=== PATIENT | female | born 1930 | race Caucasian/White ===

== ENCOUNTER 2018-12-27 18:03 | Emergency (ER) | payer MEDICARE, OTHER ==
[~2018-12-27] VITALS: Ht 165.1 cm; Wt 63.5 kg
[~2018-12-27 18:03] MED LIST: DULCOLAX5 MG PO
== END 2018-12-27 20:34 | disposition home or self-care (01) ==
LOC: ED 18:03
DX: M47.816 Spondylosis without myelopathy or radiculopathy, lumbar region (principal); M41.9 Scoliosis, unspecified; M53.3 Sacrococcygeal disorders, not elsewhere classified; Z87.891 Personal history of nicotine dependence
CPT/HCPCS: 72100; 72170; 99283

== ENCOUNTER 2018-12-29 07:47 | Observation (INO) | payer MEDICARE, OTHER ==
[~2018-12-29] VITALS: Ht 165.1 cm; Wt 65.2 kg
--- OUTSIDE RECORDS SUMMARY | 2018-12-29 07:48 | XMS ---
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 E.Robin VISIT COUNT (12 MO.) 2 [facility] TOTAL 2 NOTE: Visits indicate total known visits. ED/UCC VISIT TRACKING (12 MO.) 12/29/2018 07:47 [facility] [place] TYPE: Emergency COMPLAINT: - RT HIP PAIN 12/27/2018 18:03 [facility] [place] TYPE: Emergency COMPLAINT: - HIP PAIN, NON INJ INPATIENT VISIT TRACKING (12 MO.) No inpatient visits to display in this time frame [id number]
[2018-12-29] MEDS ORDERED: CELECOXIB200 MG PO (08:07)
[2018-12-29] MEDS ORDERED: ULTRAM50 MG PO (11:44)
--- NOTE | 2018-12-29 13:58 | EKG ---
[facility] [address] [facility] [place], [place] [address] Signed Normal sinus rhythm Left axis deviation Left bundle branch block Abnormal ECG No previous ECGs available Confirmed by HUNG CALABRSEE DO ([id number]) on 12/29/2018 1:58:06 PM Electronically Signed By: HUNG CALABRESE DO 12/29/18 1358 PATIENT NAME: ZACKARY NUNN Electrocardiogram DATE OF : [birth year] PHYSICIAN: HUNG CALABRESE DO REPORT #: [id number] REPORT IS CONFIDENTIAL AND NOT TO BE RELEASED WITHOUT AUTHORIZATION
[2018-12-29] MEDS ORDERED: LEVOTHYROXINE75 MCG PO (16:02)
[2018-12-29] MEDS ORDERED: MEDROL4 M1 PO (16:03)
[2018-12-29] MEDS ORDERED: PRESERVISION A1 EAC1 PO (16:04)
[2018-12-29] MEDS ORDERED: MOTRIN PM CAPL1 EACH PO (16:06)
--- NOTE | 2018-12-29 17:02 | NUR ---
PT RECEIVED FROM ED. PT WITH PAIN TO RIGHT HIP WITH MOVEMENT. PT ON ROOM AIR, LUNG SOUNDS CLEAR, DENIES SOB. BOWEL TONES ACTIVE, DENIES NAUSEA. CMS INTACT, WITHOUT EDEMA. IV TO LEFT FOREARM, SALINE LOCKED. PT ASSISTED TO BATHROOM, 1PA WITH FWW, ABLE TO BEAR SOME WEIGHT IN RIGHT LEG, RATING PAIN 2-3 WITH MOVEMENT. ADMISSION INTAKE COMPLETED.
--- NOTE | 2018-12-29 17:18 | NUR ---
Pt resting quietly in bed with no needs/concerns. Pt states that she is in no pain at this time. Pt dinner order of BLT with joni on whole wheat and glass of milk was given to kitchen. Call light within reach.
--- NOTE | 2018-12-29 17:39 | NUR ---
MD visiting with pt in room. Call light within reach. No needs/concerns at this time.
--- NOTE | 2018-12-29 19:15 | NUR ---
PT RESTING IN BED WITH EYES CLOSED. BREATHING EQUAL AND NON-LABORED. IVF BOLUS INFUSING WNL ORDERED. BED ALARM ON.
--- NOTE | 2018-12-29 21:08 | NUR ---
PT ASSESSMENT COMPLETE. PT DENIES ANY PAIN AT THIS TIME. SCHEDULED MEDICATIONS ADMINISTERED. IV FLUSHED WNL. IVF BOLUS INFUSING WNL ORDERED. BED ALARM ON. CALL LIGHT IN REACH.
--- NOTE | 2018-12-29 22:01 | NUR ---
IV PUMP ALARMING. PT AWAKENS TO VOICE. IV SALINE LOCKED, IVF BOLUS COMPLETE. BED ALARM ON. PT CLOSES EYES, BREATHING NON-LABORED.
--- NOTE | 2018-12-30 00:05 | NUR ---
CHECKED ON PT. RESTING IN BED WITH EYES CLOSED. BREATHING EQUAL AND UNLABORED. RR 18. BED ALARM ON.
--- NOTE | 2018-12-30 02:11 | NUR ---
IN PT ROOM FOR VS. PT SLEEPING, AWAKNES TO VOICE, DROWSY. BP 168/72 (98) ON RIGHT ARM, HR 70. PT DENIES TOILETING OR ADDITIONAL NEEDS AT THIS TIME. BED ALARM ON FOR PT SAFETY. CALL LIGHT IN REACH.
--- NOTE | 2018-12-30 04:30 | NUR ---
CHECKED ON PT. RESTING IN BED WITH EYES CLOSED. BREATHING EQUAL AND UNLABORED. RR 16. LIGHTS OFF IN ROOM BED ALARM ON.
--- NOTE | 2018-12-30 05:51 | NUR ---
IN PT ROOM FOR VS. VSS. 2PA TO BSC FOR VOID. GAIT UNSTEADY, PT SHAKY. RATES PAIN 10/10 IN RIGHT HIP DOWN LEG TO KNEE. PRN OXYCODONE ADMINISTERED. WARM PACKS IN PLACE. PT BACK IN BED. PT STATES "THAT HEAT REALLY HELPS". ASSESSMENT COMPLETE. PT ORIENTED TO PERSON, MONTH, , LOCATION, REORIENTATION TO EVENT. CSM INTACT BLE. BED ALARM ON. CALL LIGHT IN REACH. ICE WATER PROVIDED.
--- NOTE | 2018-12-30 05:58 | NUR ---
PT RESTED WELL THIS SHIFT. 2PA W FWW TO [place]BUL[place] [facility] [place] GAIT UNSTEADY. PT VERY PAINFUL UPON WAKENING IN MORNING HOURS. PRN OXYCODONE FOR PAIN AND SCHEDULED PAIN MEDICATIONS. WARM PACKS PROVIDED. ALERT AND ORIENTED TO PERSON, PLACE, MONTH, REORIENTATION PROVIDED TO EVENT. IV SALINE LOCKED.
--- NOTE | 2018-12-30 06:45 | NUR ---
CHECKED ON PT RESTING IN BED WITH EYES CLOSED. RR 16. BREATHING EQUAL AND UNLABORED. BED ALARM ON. CALL LIGHT NEXT TO PATIENT.
--- NOTE | 2018-12-30 07:10 | NUR ---
BEDSIDE HANDOFF REPORT RECEIVED FROM STAFF ATTORNEY RN. PT SLEEPING, LEFT UNDISTURBED.
--- NOTE | 2018-12-30 07:30 | NUR ---
PATIENT RESTING IN BED. HANDS AND FACE CLEANED. PATIENT'S BREAKFAST ORDERED. CALL LIGHT WITHIN REACH. NO OTHER NEEDS AT THIS TIME
--- NOTE | 2018-12-30 08:15 | NUR ---
PATIENT RESTING IN BED. RN IN ROOM. PATIENT GOES TO USE THE BASE COMMODE. PATIENT USES A WALKER. TWO PERSON ASSISTING. PATIENT BACKS TO CHAIR. SETS UP TABLE FOR BREAKFAST. CALL LIGHT WITHIN REACH. NO OTHER NEEDS AT THIS TIME
--- NOTE | 2018-12-30 08:20 | NUR ---
PT RESTING IN BED, ASSISTED TO BSC AND THEN TO CHAIR FOR BREAKFAST, 2PA WITH WALKER. PT COMPLAINT OF RIGHT HIP PAIN WITH MOVEMENT AND ACTIVITY 8-9/10, RATES PAIN 0/10 AT REST. PT ON ROOM AIR, LUNG SOUNDS CLEAR. PT ORIENTED TO ALL BUT DATE. PT TOLERATING REGULAR DIET, DENIES NAUSEA. IV SALINE LOCKED. CMS INTACT, WITHOUT EDEMA. DISCUSSED PLAN OF CARE FOR THE DAY. MORNING MEDICATIONS GIVEN PER JUL. PT DENIES OTHER NEEDS AT THIS TIME.
--- NOTE | 2018-12-30 08:50 | NUR ---
CARE CONFERENCE MET WITH PT FAMILY DAUGHTER BLACK AND SON TEJ. DR CALABRESE IN WITH US. PT IS ABLE TO GIVE THE MONTH DECEMBER. ABLE TO SAY THAT SHE IS AT THE HOSPITAL IN A HOSPITAL. SHE IS STATING SHE IS NOT SURE WHY SHE IS IN THE HOSPITAL. DR CALABRESE STATED HE IS GOING TO HAVE PT AND OT. INFORMATION ON ASSISTED LIVING FACILITIES GIVEN AND INFORMATION ON HELPING HANDS GIVEN TO BLACK AND TEJ. THEY DENIED FURTHER QUESTIONS, STATING THEY WERE GOING TO START CHECKING INTO THINGS FOR MOM.
--- NOTE | 2018-12-30 09:32 | NUR ---
PATIENT SITTING UP IN CHAIR. FAMILY IN ROOM. VITAL SIGNS AND I&O DONE. ICE WATER GIVEN. CALL LIGHT WITHIN REACH. NO OTHER NEEDS AT THIS TIME
--- NOTE | 2018-12-30 10:15 | NUR ---
NORVASC GIVEN PER ORDER. PT SITTINGIN CHAIR. PT DENIES OTHER NEEDS AT THSI TIME.
--- NOTE | 2018-12-30 11:04 | NUR ---
JOSEY FROM OT CAME AND TALKED WITH ME, STATED WHILE SHE WAS DOING HER EVAL SHE WAS REAL CONCERNED ABOUT THE PT SAFETY LIVING ALONE. I WENT INTO THE PT ROOM AND WAS TALKING WITH DAUGHTER BLACK AND THE PT ABOUT THIS AND THEY STATED UNDERSTANDING. THEY ARE GOING TO BE LOOKING INTO EITHER CAREGIVERS OR PLACEMENT IN A FACILITY. I ALSO TALKED WITH THE PT AND DISCUSSED HER NOT DRIVING IT IS NOT SAFE. 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 SHE STATED UNDERSTANDING. WE THEN DISCUSSED OTHER OPTIONS THAT ARE AVAILABLE LIKE TAXI TICKETS, FRIENDS ETC.
--- NOTE | 2018-12-30 11:45 | NUR ---
PATIENT SITTING UP IN CHAIR. PATIENT GOES TO USE THE BATHROOM. PATIENT USES A WALKER. TWO PERSON ASSISTING. PATIENT TAKES A SHOWER. GOWN AND ADULT PULL UP CHANGED. PATIENT BACKS TO CHAIR. ONE PERSON ASSISTING. WARM BLANKET PROVIDED. CALL LIGHT WITHIN REACH. NO OTHER NEEDS AT THIS TIME
--- NOTE | 2018-12-30 12:55 | NUR ---
PATIENT SITTING UP IN CHAIR. VITAL SIGNS AND I&O DONE. PATIENT'S LUNCH ORDERED. CALL LIGHT WITHIN REACH. NO OTHER NEEDS AT THIS TIME
--- NOTE | 2018-12-30 13:21 | NUR ---
PT VERY CORDIAL AND POLITE, SUPPORTED BY HER FAMILY. SHE IS SEEMS ALERT AND ORIENTED. HAD GOOD VISIT WITH PT. GAVE PT A ISAIAS AND MIGUEL. SEEMED PLEASED. WILL FOLLOW NEEDED
--- NOTE | 2018-12-30 14:20 | NUR ---
PT SITTING IN CHAIR. PT RATING PAIN 0/10 AT REST. DAUGHTER IN ROOM ASKING ABOUT DR. MCKENZIE CONSULT, NO NOTE AVAIALABLE, DISCUSSED WITH DR. CALABRESE WHO STATES THAT DR. MCKENZIE CONSULTED AND WE WILL CONTINUE WITH CURRENT TREATMENT, NO NEED FOR SURGICAL INTERVENTION, DISCUSSED WITH DAUGHTER. NO ACUTE CHANGES AT THIS TIME. PT DENIES OTHER NEEDS.
--- NOTE | 2018-12-30 14:50 | NUR ---
CALL LIGHT ANSWERED. PATIENT SITTING UP IN CHAIR. PHYSICAL THERAPIST IN ROOM. PATIENT GOES TO USE BATHROOM. ONE PERSON ASSISTING. ADULT PULL UP CHANGED. PATIENT GOES TO WALK IN THE HALLWAY WITH PHYSICAL THERAPIST.
--- NOTE | 2018-12-30 16:36 | NUR ---
PATIENT SITTING UP IN CHAIR. VITAL SIGNS AND I&O DONE. CALL LIGHT WITHIN REACH. NO OTHER NEEDS AT THIS TIME
--- NOTE | 2018-12-30 18:01 | NUR ---
PT ORIENTED TO ALL BUT DATE. PT ON ROOM AIR, LUNG SOUNDS CLEAR. PAIN WELL CONTROLED WITH TYELNOL AND GABAPENTIN, DID NOT REQUIRE OXYCODONE THIS SHIFT. PT UP WITH 1-2PA, WALKING BETTER THIS EVENING. PT TOLERATING REGULAR DIET. PT VOIDING QS.
--- NOTE | 2018-12-30 19:20 | NUR ---
BEDSIDE REPORT RECEIVED FROM KIRSTIN JACQUES. 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 IV SALINE LOCKED.
--- NOTE | 2018-12-30 21:51 | NUR ---
ROUNDED CHARGE. PATIENT ASSISTED TO THE RESTRROM A SBA W/FWW. PATIENT DENIES ANY COMMENTS, QUESTIONS, OR CONCERNS. NO NEEDS NOTED. PATIENT WILL PULL LIGHT WHEN SHE IS DONE IN THE RESTROOM.
--- NOTE | 2018-12-30 22:21 | NUR ---
PT ASSESSMENT COMPLETE. PT RESTING IN BED, RATES PAIN 8-10/10 IN RIGHT HIP, LEG. SCHEDULED MEDICATIONS ADMINISTERED. PT ORIENTED TO SELF, EVENT, LOCATION. REORIENTATION TO DATE. PT FORGETFUL. STATES PAIN GOES AWAY WHILE RN IN ROOM. BED ALARM ON. CALL LIGHT IN REACH. IV GIULIANA WNL.
--- NOTE | 2018-12-30 22:33 | NUR ---
CALL LIGHT ANSWERED, PT SHAKING. STATES "MY LEG JUST HURTS SO BAD". PRN OXYCODONE ADMINISTERED FOR PAIN. CALL LIGHT IN REACH. LIGHTS OFF IN ROOM. ICE WATER PROVIDED.
--- NOTE | 2018-12-30 23:35 | NUR ---
PT SHIFTING IN BED, RUBBING RIGHT LEG. STATES "IT'S AT LEAST A OR 03/21". MEDICATED WITH ADDITIONAL 2.5 MG OXYCODONE PER ORDERS. CALL LIGHT IN REACH. BED ALARM ON.
--- NOTE | 2018-12-30 23:58 | NUR ---
BED ALARM SOUNDING. PT ATTEMPTING TO GET OUT OF BED TO RESTROOM STATES "I JUST THROUGHT I WOULD SEE IF I COULD DO IT". 1PA WITH FWW TO RESTROOM. GAIT UNSTEADY. INSTRUCTED TO USE CALL LIGHT IN RESTROOM WHEN FINISHED, VERBALIZES UNDERSTANDING. TYREL SHAISTA REMAINS IN ROOM.
--- NOTE | 2018-12-31 01:12 | NUR ---
CHECKED ON PT. APPEARS TO BE SLEEPING, RR 16, EYES CLOSED. BREATHING EQUAL AND UNLABORED. LIGHTS OFF IN ROOM. BED ALARM ON.
--- NOTE | 2018-12-31 02:46 | NUR ---
PT RESTING IN BED WITH EYES CLOSED. BREATHING EQUAL AND UNLABORED. LIGHTS OFF IN ROOM.
--- NOTE | 2018-12-31 05:26 | NUR ---
IN PT ROOM VSS. BP 168/78 MANUAL BP. 1PA TO BSC FOR VOID. PT VERY PAINFUL, SHAKY, RIGHT LEG WEAK. PT RATES PAIN "TERRIBLE, 10/10" IN HIP, DOWN RIGHT LEG. PRN OXYCODONE ADMINISTERED FOR PAIN. ASSESSMENT COMPLETE. CSM INTACT. CALL LIGHT IN REACH. BED ALARM ON.
--- NOTE | 2018-12-31 06:51 | NUR ---
PT ORIENTED TO ALL EXCEPT DATE, FORGETFUL TO EVENT AT TIMES. C/O PAIN IN RIGHT HIP, BACK, DOWN RIGHT LEG. PRN OXYCODONE AND SCHEDULED PAIN MEDICATIONS THIS SHIFT. 1PA W FWW. IV GIULIANA.
--- NOTE | 2018-12-31 07:00 | NUR ---
BEDSIDE HANDOFF REPORT RECEIVED FROM WELT TREATER RN. PT SLEEPING, LEFT UNDISTURBED.
--- NOTE | 2018-12-31 07:13 | CONS ---
[facility] [address], [place] [address] Signed DATE OF CONSULTATION: REQUESTING PHYSICIAN: Shayne Lara MD HISTORY OF PRESENT ILLNESS: Zackary is an 88-year-old white female, with known osteoarthritis of the right hip and severe degenerative disease, and degenerative scoliosis of the lumbar spine, who was admitted the other day because of increasing right upper leg pain and inability to ambulate. It is not clear that there was any acute precipitating event. She apparently just got to the point where she could no longer ambulate effectively. Talking to her today, she mentioned that she has pain, sort of lateral upper thigh all the way down to the lateral aspect of the mid calf and then similar posteriorly. I asked her if any spot actually hurts to touch and she says she is not sure. She groin pain. Most of the pain in her buttock and upper thigh. History is significant for a long history of degenerative disease throughout her lumbar spine. She also previously had a left total hip arthroplasty, although when I asked her when that was done and why, she does not really remember where it was done, but she thinks it might have been in [place]. She does not remember why they did it. She is unaware of any problems with the left total hip. On focused examination today, she has no tenderness over the right hip anteriorly. She has a little tender ness over the greater trochanter and a little bit of tenderness over the posterior aspect of buttocks and the posterior hip joint. With her comfortably seated, I can flex the hip well over 100 degrees. She can extend it almost to 0. She can internally rotate 35, externally rotate it about 50 with no pain. Compression is unremarkable for producing pain. The Stinchfield maneuver is also negative. She does report a little tenderness over the greater trochanter, but not dramatically so. She also reports mild tenderness to palpation all the way down the iliotibial band to about the level of the knee joint. She has 4/5 strength throughout the right upper extremity, which is symmetric with her left and consistent with her age and general deconditioning. She does not describe any sensory changes to light touch in the thigh or calf. Pulses in the feet are difficult to elicit, but they appear symmetrical and her nail beds are pink with a good capillary refill. Her x-rays and x-ray reports were reviewed. On the pelvis and hip films, she has a well placed porous ingrowth total hip on the left with stable interfaces. On the right hip, Electronically Signed By: JEZ BROWER MD 12/31/18 0713 PATIENT NAME: ZACKARY NUNN CONSULTATION DATE OF : [birth year] REPORT #: [id number] PHYSICIAN: JEZ BROWER MD PCP: LEMUEL ZUÑIGA MD REPORT IS CONFIDENTIAL AND NOT TO BE RELEASED WITHOUT AUTHORIZATION [facility] [address], [place] [address] Signed she has moderate degenerative changes, but certainly nothing profound. The examination of her lumbar spine does reveal rather severe degenerative disk disease and degenerative scoliosis. IMPRESSION: 1. Osteoarthritis of right hip, mild to moderate. 2. She has severe degenerative disk disease and degenerative scoliosis of the lumbar spine. My sense is most of her symptomatology is actually coming from her back. Her hip exam is pretty benign today and her x-rays would confirm a relatively mild to moderate amount of osteoarthritis of the hip. Fortunately, she says she is dramatically better today with whatever medicine that she is being given. I would suggest we simply continue her on her current regimen and attempt to mobilize her with physical therapy and a walker. Given her age and the degree of deformity in her lumbar spine, I am not sure she would be a surgical candidate in that direction. In terms of her right hip, it certainly does not appear that she currently needs to have the hip replaced. Jez Brower MD WFB/MODL /[id number] Copies: ~ Electronically Signed By: JEZ BROWER MD 12/31/18 0713 PATIENT NAME: ZACKARY NUNN CONSULTATION DATE OF : [birth year] REPORT #: [id number] PHYSICIAN: JEZ BROWER MD PCP: LEMUEL ZUÑIGA MD REPORT IS CONFIDENTIAL AND NOT TO BE RELEASED WITHOUT AUTHORIZATION
--- NOTE | 2018-12-31 09:00 | NUR ---
PT SITTING IN CHAIR, SLEEPING, AROUSABLE TO VOICE. PT ORIENTED TO ALL BUT DATE, ABLE TO STATE IT WAS DECEMBER. PT ON ROOM AIR, LUNG SOUNDS CLEAR. PT STATES PAIN IS MINIMAL AT THIS TIME TO RIGHT HIP, GIVEN SCHEDULED GABAPENTIN AND TYLENOL. CMS INTACT, WITHOUT EDEMA. PT DENIES NAUSEA. PT WITH LOOSE STOOL OVERNIGHT, REFUSING MIRALAX THIS AM. DISCUSSED PLAN OF CARE WITH PT AND SON. PT DENIES OTHER NEEDS AT THIS TIME.
--- NOTE | 2018-12-31 09:17 | NUR ---
PATIENT SITTING IN CHAIR EATING BREAKFAST. FAMILY IN ROOM. PATIENT OFFERED WARM WASHCLOTH FOR FACE, ICE WATER HAS BEEN REFRESHED. LINENS CHANGED. CALL LIGHT WITHIN REACH. NO FURTHER NEEDS AT THIS TIME.
--- NOTE | 2018-12-31 13:38 | NUR ---
PATIENT IS RESTING IN BED. SHE GOT A SHOWER DONE. WATER REFRESHED. CALL LIGHT IN REACH. NO FURTHER NEEDS AT THIS TIME.
--- NOTE | 2018-12-31 13:47 | NUR ---
CALLED AND SPOKE WITH PT SON, HE STATED THAT HE HAD UNDERSTOOD FROM HIS SISTER THAT PT DID NOT MEET [facility] PHYSICAL THERAPY CRITERIA AND THEREFORE WAS STAYING FOR ANOTHER DAY IN THE HOSPITAL. I STATED THAT SAW HER THIS AM AND STATES THAT SHE IS ABLE TO RETURN HOME. SON QUESTIONED THE THERAPY AND I REVIEWED THE PHYSICAL THERAPY NOTES WITH HIM AND WENT OVER HOW PHYSICAL THERAPY THERAPY STATED THAT SHE HAS MET HER GOALS AND WOULD BENEFIT FROM HOME HEALTH. HE THEN STATED UNDERSTANDING AND STATED THAT HE WOULD GET A HOLD OF HIS SISTER AND PREPARE TO TAKE HER HOME.
--- NOTE | 2018-12-31 14:21 | NUR ---
PT APPEARS TO HAVE A RM FULL OF VISITORS, WILL CHECK BACK AGAIN
[2018-12-31] MEDS ORDERED: AMLODIPINE BESYL5 MG PO (14:30)
[2018-12-31] MEDS ORDERED: OXYCODONE HCL5 MG PO (14:31)
[2018-12-31] MEDS ORDERED: GABAPENTIN300 MG PO (14:32)
[2018-12-31] MEDS ORDERED: SENNA-TIME S T1 EACH PO (14:32)
[2018-12-31] MEDS ORDERED: HEALTHYLAX17 GM PO (14:32)
[2018-12-31] MEDS ORDERED: TYLENOL EXTRA500 MG PO (14:32)
--- NOTE | 2018-12-31 14:42 | NUR ---
PT TRYING TO GET OUT OF BED TO GET DRESSED FOR DISCHARGE. AWAITING CASE MANAGEMENT TO SPEAK SON OR DAUGHTER FOR DISCHARGE. PT ASSISTED BACK TO BED, BED ALARM IN PLACE.
--- NOTE | 2018-12-31 16:20 | NUR ---
PT ANXIOUS ABOUT DISCHARGE, ASSISTED TO WALK TO BATHROOM TO COMB HER HAIR. PT COMPLAINT OF PAIN 8-9/10 TO HIP WHEN UP, GIVEN 5 MG OXYCODONE. PT VOICING FEELINGS OF FRUSTRATION ABOUT DISCHARGE AND FEELS LIKE DECISIONS HAVE BEEN MADE WITHOUT HER INVOLVEMENT, DISCUSSED THAT BOTH HER SON AND DAUGHTER HAVE BEEN PRESENT FOR DISCHARGE PLANNING. AWAITING DAUGHTER TO ARRIVE FOR DISCHARGE.
--- NOTE | 2019-01-01 07:41 | NUR ---
FAXED CHART NOTES INCLUDING FACE SHEET, ORDER, H AND P, PROG NOTES, CONSULT, PT AND OT EVAL AND NOTES TO [facility].
--- NOTE | 2019-01-01 08:17 | NUR ---
RECEIVED FAX CONFIRMATION FROM [facility] REGARDING THIS PT. ALSO TALKED WITH MANA FROM [facility].
== END 2018-12-31 17:15 | disposition home health service (06) ==
LOC: ED 07:47 → MS 07:48
PROVIDERS: ADMIT Student in an Organized Health Care Education/Training Program
DX: M16.12 Unilateral primary osteoarthritis, left hip (principal); M41.56 Other secondary scoliosis, lumbar region; M47.816 Spondylosis without myelopathy or radiculopathy, lumbar region; M51.36 Other intervertebral disc degeneration, lumbar region; E03.9 Hypothyroidism, unspecified; M46.1 Sacroiliitis, not elsewhere classified; I10 Essential (primary) hypertension; Z66 Do not resuscitate; Z79.891 Long term (current) use of opiate analgesic; Z79.899 Other long term (current) drug therapy; Z79.1 Long term (current) use of non-steroidal anti-inflammatories (NSAID)
CPT/HCPCS: 51701; 72192; 80053; 81001; 82607; 84443; 85025; 85651; 93005; 93010; 96372; 97110; 97116; 97161; 97166; 99285-25; G0378; J1650; J7120; J7512

== ENCOUNTER 2019-12-05 19:26 | Emergency (ER) | payer MEDICARE, OTHER ==
[~2019-12-05] VITALS: Ht 165.1 cm; Wt 63.0 kg
[~2019-12-05 19:26] MED LIST changes: +AMLODIPINE BESYL5 MG PO; +CELECOXIB200 MG PO; +GABAPENTIN300 MG PO; +HEALTHYLAX17 GM PO; +LEVOTHYROXINE75 MCG PO; +MEDROL4 M1 PO; +MOTRIN PM CAPL1 EACH PO; +OXYCODONE HCL5 MG PO; +PRESERVISION A1 EAC1 PO; +SENNA-TIME S T1 EACH PO; +TYLENOL EXTRA500 MG PO; +ULTRAM50 MG PO
--- OUTSIDE RECORDS SUMMARY | 2019-12-05 19:30 | XMS ---
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 ENancy VISIT COUNT (12 MO.) 3 [facility] TOTAL 3 NOTE: Visits indicate total known visits. ED/UCC VISIT TRACKING (12 MO.) 12/05/2019 19:27 [facility] [place] TYPE: Emergency COMPLAINT: - AGGITATION 12/29/2018 07:47 [facility] [place] TYPE: Emergency COMPLAINT: - RT HIP PAIN 12/27/2018 18:03 [facility] [place] TYPE: Emergency COMPLAINT: - HIP PAIN, NON INJ DIAGNOSES: - Sacrococcygeal disorders, not elsewhere classified - Personal history of nicotine dependence - Scoliosis, unspecified - Pain in right hip - Spondylosis without myelopathy or radiculopathy, lumbar regio INPATIENT VISIT TRACKING (12 MO.) 12/29/2018 07:48 [facility] [place] TYPE: Observation COMPLAINT: - RIGHT HIP PAIN DIAGNOSES: - Spondylosis without myelopathy or radiculopathy, lumbar regio - Other intervertebral disc degeneration, lumbar region - Pain in right hip - Hypothyroidism, unspecified - Sacroiliitis, not elsewhere classified - Other intermediate project manager (current) drug therapy - halfway (current) use of non-steroidal anti-inflammatories - Other secondary scoliosis, lumbar region - Essential (primary) hypertension - halfway (current) use of opiate analgesic - Unilateral primary osteoarthritis, left hip - Do not resuscitate [email or web address]
[2019-12-05] MEDS ORDERED: KEFLEX500 MG PO (22:17)
== END 2019-12-05 22:48 | disposition home or self-care (01) ==
LOC: ED 19:26
DX: N39.0 Urinary tract infection, site not specified (principal); I10 Essential (primary) hypertension; Z79.899 Other long term (current) drug therapy
CPT/HCPCS: 80053; 81001; 85025; 87088; 96361; 96365; 99284-25; J0696; J7030